=== PATIENT | male | born 2000 | race Caucasian/White ===

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

== ENCOUNTER 2024-07-07 05:28 | Emergency (ER) | payer BC, MEDICAID ==
[2024-07-07] MEDS: Ondansetron 4 MG/2 ML SDV IVPUSH PRN (05:36)
[2024-07-07] MEDS ORDERED: Naloxone 0.4 MG/ML SDV IVPUSH PRN (05:36)
[2024-07-07] MEDS: fentaNYL 50 MCG/ML SDV IVPUSH ONE ×2 (05:40→06:14)
[2024-07-07] MEDS: Ondansetron 4 MG/2 ML SDV ONE (05:44)
[2024-07-07] MEDS: Lactated Ringers 1,000 ML IV ONE (05:47)
[2024-07-07 05:52] LABS: BASOPHILS ABSOLUTE AUTO 0.03 K/uL (0.00-0.20); BASOPHILS PERCENT AUTO 0.3 % (0.0-2.0); EOSINOPHILS ABSOLUTE AUTO 0.11 K/uL (0.00-0.50); EOSINOPHILS PERCENT AUTO 1.1 % (0.0-5.0); HEMATOCRIT 46.2 % (39.0-49.0); LYMPHOCYTES ABSOLUTE AUTO 4.02 K/uL (0.50-3.50); LYMPHOCYTES PERCENT AUTO 38.8 % (10.0-50.0); MEAN CORPUSCULAR HEMOGLOBIN 30.2 pg (28.2-33.3); MEAN CORPUSCULAR HGB CONC 34.6 g/dL (31.7-36.0); MEAN CORPUSCULAR VOLUME 87.2 fL (84.0-98.0); MONOCYTES ABSOLUTE AUTO 0.73 K/uL (0.00-1.00); NEUTROPHILS ABSOLUTE AUTO 5.47 K/uL (1.40-7.00); NEUTROPHILS PERCENT AUTO 52.8 % (45.0-80.0); PLATELET COUNT,PLT 236 K/uL (150-350); RED CELL DISTRIBUTION WIDTH 12.5 % (11.2-14.1); WHITE BLOOD CELL COUNT,WBC 10.4 K/uL (4.0-10.2)
[2024-07-07 06:08] LABS: INR 1.1 (0.9-1.1); PROTHROMBIN TIME 10.8 SEC (9.0-11.1)
[2024-07-07] MEDS: Prochlorperazine 10 MG/2 ML SDV IV ONE (06:08)
[2024-07-07] MEDS: Ketorolac 15 MG/ML SDV IVPUSH ONE (06:11)
[2024-07-07] MEDS: Sodium Chloride 0.9% 10 ML Syringe FLUSH PRN (06:11)
[2024-07-07 06:12] LABS: ALANINE AMINOTRANSFERASE,ALT 22 U/L (12-78); ALBUMIN 4.5 g/dL (3.4-5.0); ALKALINE PHOSPHATASE 69 IU/L (46-116); ANION GAP 7.6 meq/L (7-15); ASPARTATE AMNIOTRANSFERASE,AST 12 U/L (15-37); BILIRUBIN TOTAL 0.8 mg/dL (0.2-1.0); BLOOD UREA NITROGEN,BUN 11 mg/dL (7-18); CALCIUM 9.3 mg/dL (8.5-10.1); CARBON DIOXIDE,CO2 30.4 mmol/L (21.0-32.0); CHLORIDE,CL 101 mmol/L (98-107); CREATININE 1.19 mg/dL (0.51-1.17); GLUCOSE RANDOM 117 mg/dL (70-99); POTASSIUM,K 3.9 mmol/L (3.5-5.1); PROTEIN TOTAL,TP 7.5 g/dL (6.4-8.2); SODIUM,NA 139 mmol/L (136-145)
[2024-07-07 06:13] LABS: ESTIMATED GFR 89 mL/min (>=60)
[2024-07-07] MEDS: Tamsulosin 0.4 MG Cap.ER PO ONE (06:45)
[2024-07-07 09:09] LABS: APPEARANCE,URINE SLIGHTLY CLOUDY; BILIRUBIN,URINE NEGATIVE (NEGATIVE); COLOR,URINE YELLOW; GLUCOSE,URINE NEGATIVE (NEGATIVE); KETONES,URINE NEGATIVE (NEGATIVE); LEUKOCYTE ESTERASE,URINE NEGATIVE (NEGATIVE); NITRITE,URINE NEGATIVE (NEGATIVE); OCCULT BLOOD,URINE LARGE (NEGATIVE); PH,URINE 6.5 (5.0-9.0); PROTEIN,URINE 30 mg/dL (NEGATIVE); UROBILINOGEN,URINE 0.2 E.U./dL (0.2-1.0)
[2024-07-07 09:19] LABS: BACTERIA,URINE RARE /HPF (NONE TO FEW); EPITHELIAL CELLS,URINE RARE /LPF; MUCUS,URINE FEW /LPF (NEGATIVE); RBC,URINE >100 /HPF; WBC,URINE 0-5 /HPF
[2024-07-07] MEDS: Take Home: Ondansetron 4 MG Tab.DIS, 5 Tab Pack PO ONE (09:28)
[2024-07-07] MEDS: Take Home: Ketorolac 10 MG Tab, 4 Tab Pack PO ONE (09:28)
== END 2024-07-07 09:30 ==
LOC: LL.ED 05:28
DX: N13.2 Hydronephrosis with renal and ureteral calculous obstruction (principal); Z88.1 Allergy status to other antibiotic agents; Z79.899 Other long term (current) drug therapy
CPT/HCPCS: 36415; 74176; 80053; 81001; 85025; 85610; 96361; 96374; 96375; 96376; 99284; 99284-25; A9270-GY; J0780; J1885; J2405; J3010; J3490; J7120; Q0162